=== PATIENT | female | born 1985 | race Caucasian/White ===

== ENCOUNTER 2021-01-06 01:40 | Inpatient (IN) ==
[2021-01-06] MEDS ORDERED: Lactated Ringers 1000 ml BAG 1,000 ML IV ONE (02:33)
[2021-01-06] MEDS ORDERED: Buffered Lidocaine 1% SYRIN 1 ml INTRADERM ONE (02:33)
[2021-01-06 03:07] LABS: Rapid COVID-19 Molecular Undetected (Undetected)
[2021-01-06 09:48] LABS: ABS Basophils 0.1 10^3/ul (0-0.2); ABS Lymphocytes 0.8 10^3/ul (1.0-4.8); ABS Monocytes 0.3 10^3/ul (0-0.8); ABS Neutrophils 9.9 10^3/ul (1.5-7.7); Hematocrit 30 % (35-47); Hemoglobin 10.1 g/dL (12.0-16.0); Mean Corpuscular HGB Conc 34 g/dL (31-36); Mean Corpuscular Hemoglobin 29 pg (27-31); Mean Corpuscular Volume 85 fL (80-97); Mean Platelet Volume 11.5 fL (7.4-10.4); Platelet Count 177 10^3/uL (150-450); Red Blood Count 3.51 10^6 /uL (3.70-4.87); Red Cell Distribution Width 14 % (10-15); White Blood Count 11.1 10^3/uL (3.5-10.8)
[2021-01-06] MEDS ORDERED: OBEPIDURAL 250 ML EPIDURAL ONE (09:53)
[2021-01-06 11:05] LABS: Urine Appearance Clear; Urine Bilirubin Negative (Negative); Urine Blood Negative (Negative); Urine Color Yellow; Urine Glucose Negative (Negative); Urine Ketones 2+ (Negative); Urine Nitrite Negative (Negative); Urine Protein 2+(100 mg/dL) (Negative); Urine Specific Gravity 1.017 (1.002-1.030); Urine Urobilinogen Negative (Negative)
[2021-01-06 11:19] LABS: Urine Bacteria Absent (Absent); Urine Red Blood Cell Absent (Absent); Urine Squamous Epithelial Cell Present (Absent); Urine White Blood Cell Trace(0-5/hpf) (Absent)
[2021-01-06] MEDS ORDERED: Oxytocin in LR 20 UNITS/1,000 ML BAG IVPB SCH ×2 (12:00→17:00)
[2021-01-06 12:01] LABS: Urine Benzodiazepine Screen None Detected (None Detect); Urine Cannabinoids Screen None Detected (None Detect); Urine Opiates Screen None Detected (None Detect)
[2021-01-06] MEDS ORDERED: Lidocaine 1% VIAL 10 MG/ML VIAL ONE (15:45)
[2021-01-06 16:28] LABS: Hematocrit 25 % (35-47); Hemoglobin 8.4 g/dL (12.0-16.0); Mean Corpuscular HGB Conc 33 g/dL (31-36); Mean Corpuscular Hemoglobin 29 pg (27-31); Mean Corpuscular Volume 86 fL (80-97); Mean Platelet Volume 11.5 fL (7.4-10.4); Platelet Count 184 10^3/uL (150-450); Red Blood Count 2.95 10^6 /uL (3.70-4.87); Red Cell Distribution Width 14 % (10-15); White Blood Count 11.8 10^3/uL (3.5-10.8)
[2021-01-06] MEDS ORDERED: Lactated Ringers 1000 ml BAG 1,000 ML IV SCH (17:00)
[2021-01-06 17:01] LABS: Activated Partial Thrombo Time 25.3 seconds (26.0-38.0); Fibrinogen 374.2 mg/dL (110.8-404.3); INR 0.94 (0.86-1.15)
[2021-01-06 17:32] LABS: Platelet Count 184 10^3/ul (150-450)
[2021-01-06 17:51] LABS: Schistocytes ABSENT
[2021-01-06] MEDS: Dibucaine 1% OINT 28.35 GM TUBE PR PRN (23:35)
[2021-01-06] MEDS: Witch Hazel PAD JAR TOPICAL PRN (23:35)
[2021-01-07 07:12] LABS: ABS Lymphocytes 1.1 10^3/ul (1.0-4.8); ABS Monocytes 0.5 10^3/ul (0-0.8); ABS Neutrophils 8.9 10^3/ul (1.5-7.7); Eosinophil % 0.1 %; Hematocrit 24 % (35-47); Hemoglobin 8.3 g/dL (12.0-16.0); Lymphocyte % 10.8 %; Mean Corpuscular HGB Conc 35 g/dL (31-36); Mean Corpuscular Hemoglobin 29 pg (27-31); Mean Corpuscular Volume 83 fL (80-97); Mean Platelet Volume 10.2 fL (7.4-10.4); Platelet Count 132 10^3/uL (150-450); Red Blood Count 2.87 10^6 /uL (3.70-4.87); Red Cell Distribution Width 15 % (10-15); White Blood Count 10.5 10^3/uL (3.5-10.8)
[2021-01-07] MEDS: Dibucaine 1% OINT 28.35 GM TUBE PR PRN (08:36)
[2021-01-07] MEDS ORDERED: RHO D Immune Globulin (HUMAN) 300 MCG = 1,500 I.U. INJ IM PRN (15:20)
[2021-01-08] MEDS: Dibucaine 1% OINT 28.35 GM TUBE PR PRN (13:01)
[2021-01-08] MEDS: Witch Hazel PAD JAR TOPICAL PRN (21:25)
[2021-01-09 09:33] VITALS: BP 127/69
[2021-01-09] MEDS: Dibucaine 1% OINT 28.35 GM TUBE PR PRN (12:49)
[2021-01-09] MEDS: Witch Hazel PAD JAR TOPICAL PRN (12:49)
== END 2021-01-09 13:42 | disposition home or self-care (01) | DRG 806 ==
LOC: MCHOBOUT 01:40 → MCHOB 02:37
PROVIDERS: ADMIT Advanced Practice Midwife; ATTEND Midwife